=== PATIENT | female | born 1960 | race Caucasian/White ===

== ENCOUNTER 2016-07-22 12:51 | Emergency (ER) | payer MEDICARE, MEDICAID ==
[2016-07-22] MEDS ORDERED: IPRATROPIUM/ALBUTEROL 3 ML VIAL NEB ONE (13:04)
[2016-07-22] MEDS ORDERED: traZODone HCL 100 MG TAB PO ONE (13:04)
[2016-07-22] MEDS ORDERED: BUTORPHANOL TARTRATE 2 MG/ML VIAL IM ONE (13:05)
[2016-07-22] MEDS ORDERED: predniSONE 20 MG TAB PO ONE (13:06)
[2016-07-22 13:16] VITALS: TEMP 98.5
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
[2016-07-22 15:06] VITALS: BP 145/74; O2SAT 98
== END 2016-07-22 14:50 | disposition home or self-care (01) ==
LOC: ER 12:51
DX: J44.1 Chronic obstructive pulmonary disease with (acute) exacerbation (principal); G43.909 Migraine, unspecified, not intractable, without status migrainosus; Z88.0 Allergy status to penicillin; Z79.899 Other long term (current) drug therapy
CPT/HCPCS: 94640; J0595; J7512; J7620

== ENCOUNTER → 2016-07-26 | Outpatient (CLI) | payer MEDICARE, MEDICAID ==
--- NOTE | 2016-07-27 15:16 | RAD ---
EXAM DESCRIPTION: Chest,2 Views CLINICAL HISTORY: 55 years, Female, COPD COMPARISON: February 15, 2010 FINDINGS: Hyperinflation. Some new patchy density left infrahilar zone suspicious for lower lobe pneumonia. Cardiac silhouette normal. Mild apical pleural thickening. IMPRESSION: New opacity left infrahilar zone posteriorly suspicious for lower lobe pneumonia. Follow-up recommended. Normal heart size Electronically signed by: Hugo Locke MD 07/27/2016 3:15 PM CDT
== END | disposition home or self-care (01) ==
LOC: YCFC.O 17:01
PROVIDERS: ATTEND Nurse Practitioner Family
DX: R68.83 Chills (without fever) (principal); J44.1 Chronic obstructive pulmonary disease with (acute) exacerbation

== ENCOUNTER 2017-02-01 16:00 | Emergency (ER) | payer MEDICARE, MEDICAID ==
[2017-02-01 16:14] VITALS: BP 136/95; TEMP 96.8; O2SAT 100
[2017-02-01] MEDS ORDERED: CLINDAMYCIN HCL CAP 150 MG CAP PO ONE (16:29)
--- NOTE | 2017-02-01 16:32 | ED.PDOC ---
History of Present Illness - General Chief Complaint: General Stated Complaint: left jaw swelling Time Seen by Provider: 02/01/17 16:28 Source: patient, RN notes reviewed, Vital Signs reviewed Exam Limitations: no limitations - History of Present Illness Initial Comments: Patient comes to ER with c/o L jaw pain and swelling since yesterday. She thinks it is related to her teeth. No fever or chills. Timing/Duration: 24 hours Severity: moderate Improving Factors: nothing Worsening Factors: eating Associated Symptoms: denies symptoms Allergies/Adverse Reactions: Allergies Penicillins Allergy (Verified 07/22/16 13:08) Home Medications: Ambulatory Orders Albuterol Inhaler [Ventolin Hfa Inhaler] 2 puff INH Q2H PRN #1 inh 07/22/16 Alprazolam [Xanax] 2 mg PO TID 02/01/17 Clindamycin HCl 300 mg PO QID #28 cap 02/01/17 Lurasidone HCl [Latuda] 40 mg PO BEDTIME 02/01/17 Prazosin HCl 1 mg PO BEDTIME 02/01/17 Trazodone HCl 100 mg PO BEDTIME 02/01/17 Venlafaxine HCl [Venlafaxine HCl ER] 300 mg PO DAILY 02/01/17 Review of Systems - Review of Systems Constitutional: States: no symptoms reported EENTM: States: see HPI, mouth pain - L upper jaw, mouth swelling Respiratory: States: no symptoms reported Cardiology: States: no symptoms reported Gastrointestinal/Abdominal: States: no symptoms reported Musculoskeletal: States: no symptoms reported Skin: States: no symptoms reported Neurological: States: no symptoms reported All other Systems: No Change from Baseline Past Medical History (General) - Patient Medical History Hx Stroke: No Hx of COPD: Yes Hx Congestive Heart Failure: No Hx Hypertension: Yes Hx Diabetes: No Surgical History: Hysterectomy - Vaccination History Hx Influenza Vaccination: No Hx Pneumococcal Vaccination: No - Social History Hx Tobacco Use: Yes - Female History Patient is a Female of Child Bearing Age (10 -59 yrs old): No Family Medical History - Family History Mother Family History: Unknown Living Status: Unknown Hx Family Diabetes: Yes Physical Exam - Physical Exam General Appearance: Alert, Comfortable, No apparent distress, Well Developed, Well Groomed, Well Hydrated, Well Nourished Ears, Nose, Throat: hearing grossly normal, other - L upper molars: 2 missing and one broken with jum swelling, tenderness and erythema. Neck: full range of motion, supple, lymphadenopathy (L) Respiratory: no respiratory distress Extremity: normal inspection Neurologic: alert, normal mood/affect, oriented x 3 Skin Exam: normal color, warm/dry Comments: Vital Signs 02/01/17 16:10 Temperature 96.8 F L Pulse Rate [ 84 Left Brachial] Respiratory 20 Rate Blood Pressure 136/95 [Left Arm] O2 Sat by Pulse 100 Oximetry Progress - Progress Progress: 02/01/17 16:33 Clindamycin 300mg PO given Departure - Departure Clinical Impression: Dental abscess, Dental caries Time of Disposition: 16:33 Disposition: Discharge to Home or Self Care Condition: Good Departure Forms: ED Discharge - Pt. Copy, Patient Portal Self Enrollment Instructions: Tooth Abscess, DI for Tooth Decay Diet: resume usual diet Activity: increase activity as tolerated Referrals: Taylor Heller NP [Primary Care Provider] - 1-2 Weeks Prescriptions: Clindamycin HCl 300 mg PO QID #28 cap Home Medications: Ambulatory Orders Albuterol Inhaler [Ventolin Hfa Inhaler] 2 puff INH Q2H PRN #1 inh 07/22/16 Alprazolam [Xanax] 2 mg PO TID 02/01/17 Clindamycin HCl 300 mg PO QID #28 cap 02/01/17 Lurasidone HCl [Latuda] 40 mg PO BEDTIME 02/01/17 Prazosin HCl 1 mg PO BEDTIME 02/01/17 Trazodone HCl 100 mg PO BEDTIME 02/01/17 Venlafaxine HCl [Venlafaxine HCl ER] 300 mg PO DAILY 02/01/17
== END 2017-02-01 16:46 | disposition home or self-care (01) ==
LOC: ER 16:00
DX: K04.7 Periapical abscess without sinus (principal); K02.9 Dental caries, unspecified; J44.9 Chronic obstructive pulmonary disease, unspecified; I10 Essential (primary) hypertension; Z87.891 Personal history of nicotine dependence; Z79.899 Other long term (current) drug therapy; Z88.0 Allergy status to penicillin

== ENCOUNTER 2018-06-27 07:03 | Inpatient (IN) | payer MEDICARE, MEDICAID ==
[2018-06-27] MEDS ORDERED: IPRATROPIUM/ALBUTEROL 3 ML VIAL NEB ONE (07:26)
[2018-06-27] MEDS ORDERED: methylPREDNISolone SODIUM SUC 125 MG/2 ML VIAL IV ONE (07:27)
--- NOTE | 2018-06-27 07:28 | ED.PDOC ---
History of Present Illness - General Chief Complaint: General Stated Complaint: Dizzy, "hurts all over" Time Seen by Provider: 06/27/18 07:16 Source: patient, EMS Exam Limitations: no limitations - History of Present Illness Initial Comments: Lorie Means 57 y/o female with history of COPD brought by EMS with sob,achy all over and fever since last night had also non radiating sharp pains on her chest on deep breathing. Timing/Duration: 24 hours Severity: moderate Improving Factors: nothing Worsening Factors: nothing Associated Symptoms: other - see hpi Allergies/Adverse Reactions: Allergies Penicillins Allergy (Verified 06/27/18 07:54) Home Medications: Ambulatory Orders Albuterol Inhaler [Ventolin Hfa Inhaler] 2 puff INH Q2H PRN #1 inh 07/22/16 Alprazolam [Xanax] 2 mg PO TID 02/01/17 Lurasidone HCl [Latuda] 40 mg PO BEDTIME 02/01/17 Prazosin HCl 1 mg PO BEDTIME 02/01/17 Trazodone HCl [Trazodone Hydrochloride] 100 mg PO BEDTIME 02/01/17 Review of Systems - Review of Systems Constitutional: States: no symptoms reported EENTM: States: no symptoms reported Respiratory: States: see HPI Cardiology: States: see HPI Gastrointestinal/Abdominal: States: no symptoms reported Genitourinary: States: no symptoms reported Musculoskeletal: States: no symptoms reported Skin: States: no symptoms reported All other Systems: Reviewed and Negative, No Change from Baseline Past Medical History (General) - Patient Medical History Hx Stroke: No Hx of COPD: Yes Hx Congestive Heart Failure: No Hx Hypertension: Yes Hx Diabetes: No Surgical History: other - hysterectomy,,knee surgery - Vaccination History Hx Influenza Vaccination: No Hx Pneumococcal Vaccination: No - Social History Hx Tobacco Use: Yes Cigarettes Packs Per Day: 10 Family Medical History - Family History Mother Family History: Unknown Living Status: Unknown Hx Family Diabetes: Yes Physical Exam - Physical Exam General Appearance: Alert, Comfortable, No apparent distress Eye Exam: bilateral normal Ears, Nose, Throat: hearing grossly normal, normal ENT inspection, normal pharynx Neck: non-tender, supple Respiratory: no respiratory distress, no accessory muscle use, decreased breath sounds - bases Cardiovascular/Chest: normal peripheral pulses, regular rate, rhythm, tachycardia Peripheral Pulses: radial,right: 2+, radial,left: 2+ Gastrointestinal/Abdominal: non tender, soft, no organomegaly Back Exam: normal inspection, no CVA tenderness, no vertebral tenderness Extremity: non-tender, no pedal edema, no calf tenderness Neurologic: alert, oriented x 3 Skin Exam: normal color, warm/dry Progress - Progress Progress: 06/27/18 07:45 Vital Signs - 8 hr 06/27/18 07:43 Pulse Rate 88 Respiratory 20 Rate O2 Sat by Pulse 94 L Oximetry - Results/Orders Results/Orders: 06/27/18 07:30 EKG STAT 06/27/18 07:33 URINALYSIS Stat 06/27/18 08:20 BLOOD CULTURE Stat 06/27/18 09:00 Updrafts Daily 06/27/18 Breakfast Regular Diet Laboratory Results - last 24 hr 06/27/18 06/27/18 07:26 07:33 WBC 14.0 H RBC 4.39 Hgb 12.4 Hct 37.0 MCV 84.4 MCH 28.2 MCHC 33.4 RDW 12.9 Plt Count 234 MPV 8.6 Absolute Neuts (auto) 12.40 H Absolute Lymphs (auto) 0.80 L Absolute Monos (auto) 0.90 H Absolute Eos (auto) 0.00 Absolute Basos (auto) 0.10 Neutrophils % 88.2 H Lymphocytes % 5.3 L Monocytes % 6.1 Eosinophils % 0.0 L Basophils % 0.4 PT 9.8 INR 0.98 PTT (SP) 24.7 Sodium 130 L Potassium 3.0 L Chloride 96 L Carbon Dioxide 24 Anion Gap 13.0 BUN 13 Creatinine 0.71 BUN/Creatinine Ratio 18.3 Random Glucose 108 H Serum Osmolality 261.4 L Lactic Acid 2.1 Calcium 8.6 Magnesium 1.5 L Total Bilirubin 1.0 Direct Bilirubin 0.2 Indirect Bilirubin 0.8 AST 27 ALT 19 Alkaline Phosphatase 76 Creatine Kinase 79 CK-MB (CK-2) 1.7 CK-MB (CK-2) % Not Reportable Troponin I < 0.02 Serum Total Protein 7.8 Albumin 3.8 D/W patient regarding findings of PNA on CXR and recommended admit to hospital - EKG/XRAY/CT EKG: Sinus, RBBB - incomplete, no ST T wave changes Comments: HR-83 XRAY: chest - LL PNA Departure - Departure Clinical Impression: Pneumonia Qualifiers: Pneumonia type: due to unspecified organism Laterality: left Lung location: lower lobe of lung Qualified Code(s): J18.1 - Lobar pneumonia, unspecified organism Time of Disposition: 09:14 Disposition: Admit Patient Condition: Fair Departure Forms: Patient Portal Self Enrollment Referrals: Taylor Heller [employer] [Primary Care Provider] - 1-2 Weeks Home Medications: Ambulatory Orders Albuterol Inhaler [Ventolin Hfa Inhaler] 2 puff INH Q2H PRN #1 inh 07/22/16 Alprazolam [Xanax] 2 mg PO TID 02/01/17 Lurasidone HCl [Latuda] 40 mg PO BEDTIME 02/01/17 Prazosin HCl 1 mg PO BEDTIME 02/01/17 Trazodone HCl [Trazodone Hydrochloride] 100 mg PO BEDTIME 02/01/17 Decision To Admit - Decistion To Admit Decision to Admit Reason: Medical Nature Decision to Admit Date: 06/27/18 - D/W Tavia Sharp-TG/Hospitalist Decision to Admit Time: 09:12
--- NOTE | 2018-06-27 07:45 | RAD ---
CHEST 06/27/2018 CLINICAL HISTORY: Shortness of breath COMPARISON: 07/26/2016 TECHNIQUE: AP Chest. FINDINGS: Heart is normal in size. Normal cardiac mediastinal contours and accounting for slight rotation. No pulmonary edema. Left lower lobe opacities consistent with pneumonia. There is no pleural fluid or pneumothorax. Unremarkable soft tissues and bones. IMPRESSION: 1. Left lower lobe pneumonia. Electronically signed by: Nichelle Kam DO 06/27/2018 7:42 AM CDT
[2018-06-27] MEDS ORDERED: levoFLOXacin 500MG IV 500 MG in PREMIX BAG 1 BAG IVPB ONE (08:08)
[2018-06-27] MEDS ORDERED: levoFLOXacin 500MG IV 100 ML IVPB ONE (08:14)
[2018-06-27] MEDS ORDERED: ACETAMINOPHEN 325 MG TAB PO ONE (09:10)
[2018-06-27] MEDS ORDERED: fentaNYL CITRATE INJ 50 MCG/ML AMP IV ONE (09:24)
--- NOTE | 2018-06-27 09:43 | HP ---
SUPERVISING PHYSICIAN: Pancho Dial MD CHIEF COMPLAINT: Weakness, lethargy and shortness of breath. HISTORY OF PRESENT ILLNESS: This is a 57-year-old female patient who has a history of chronic obstructive pulmonary disease. Yesterday, she actually went to work, but about 2 in the afternoon, she became extremely weak and decided to go home. She had shortness of breath and she went home and slept until early this morning. At that point, she could hardly get out of the bed. She continued to have some mild coughing and shortness of breath. She called the ambulance to bring her to the Emergency Room. In the Emergency Room, her WBCs were 14,000 with a left shift on differential. Hemoglobin 12.4, hematocrit 37. Sodium low at 130, potassium low at 3, chloride 96. Glucose slightly high at 106. Magnesium 1.5. Blood cultures were drawn. Chest x-ray shows left lower lobe pneumonia. She was given some Levaquin as well as Solu-Medrol and some breathing treatments. I was called for hospital admission. PAST MEDICAL HISTORY: 1. Hypertension. 2. Chronic obstructive pulmonary disease. 3. Gastroesophageal reflux disease. 4. Anxiety. 5. Bipolar disease. 6. Posttraumatic stress disorder. PAST SURGICAL HISTORY: 1. Knee surgery. 2. Hysterectomy. 3. . ALLERGIES: PENICILLIN. FAMILY HISTORY: Unknown except for diabetes. SOCIAL HISTORY: She smokes about 2 packs of cigarettes weekly. She drinks alcoholic beverages on rare occasions. She denies any illicit drug use. REVIEW OF SYSTEMS: GENERAL: Positive for weakness, fever, fatigue. HEENT: Negative for sinus symptoms, ear pain, vision changes or sore throat. RESPIRATORY: Per history of present illness. CARDIAC: Negative for chest pain, palpitations or tachycardia. GASTROINTESTINAL: Negative for nausea, vomiting, diarrhea or abdominal pain. GENITOURINARY: Negative for hematuria, dysuria or polyuria. MUSCULOSKELETAL: Positive for arthralgias, myalgias. SKIN: Negative for lesions or rashes. NEUROLOGIC: Positive for weakness. Negative for headache or seizures. PHYSICAL EXAMINATION: VITAL SIGNS: Temperature 100.9. Heart rate 89. Blood pressure 125/67. Respiratory rate 18. O2 saturation 94% on 2 liters nasal cannula. GENERAL: This is a 57-year-old female patient who is lying in her hospital bed. She is in no acute distress. HEENT: Normocephalic, atraumatic. Pupils are equal and reactive. Oropharynx is clear. NECK: Supple without mass. RESPIRATORY: Scattered rhonchi throughout with a few expiratory wheezes in the bases. She is slightly tachypneic at times. CHEST: There is equal rise and fall of the chest with inspiration and expiration. CARDIOVASCULAR: Regular rate and rhythm. GASTROINTESTINAL: Abdomen is soft, nondistended, nontender. Bowel sounds are positive. EXTREMITIES: No cyanosis, clubbing or edema. NEUROLOGIC: Awake, alert and oriented times three. Cranial nerves II-XII are grossly intact. SKIN: Warm and dry. LABORATORY: Labs and films are as per history of present illness. IMPRESSION: 1. Sepsis related to left lower lobe pneumonia, most likely community acquired, with admitting temperature of 101.6, respiratory rate 24, WBCs 14,000, heart rate 92. She has a history of chronic obstructive pulmonary disease and she currently smokes. 2. Chronic obstructive pulmonary disease with cute exacerbation, complicated by #1. 3. Electrolyte disturbance, mainly hyponatremia, hypokalemia and hypomagnesemia. 4. Mild dehydration due to #1. 5. History of hypertension. 6. Anxiety. 7. Posttraumatic stress disorder. 8. Bipolar disorder. PLAN: We will admit the patient to the hospital. I will initiate the pneumonia guidelines and continue on Levaquin as ordered in the Emergency Room. She will also get an IV steroid taper and will have good, aggressive pulmonary hygiene including p.r.n. and scheduled breathing treatments. I have restarted her home medications. I started a proton pump inhibitor for ulcer prophylaxis as well as Lovenox for DVT prophylaxis. We will continue to monitor the patient closely and follow as needed. [facility][id number] [facility]
[2018-06-27] MEDS ORDERED: ACETAMINOPHEN 325 MG TAB PO PRN (10:24)
[2018-06-27] MEDS ORDERED: ALBUTEROL SULFATE 2.5 MG/3 ML VIAL NEB PRN (10:24)
[2018-06-27] MEDS ORDERED: SODIUM CHLORIDE 0.9% (FLUSH) 10 ML SYG IV PRN (10:24)
[2018-06-27] MEDS ORDERED: IV SET AND CAP CHANGE INJ INJ SCH (10:30)
[2018-06-27] MEDS ORDERED: POTASSIUM CHLORIDE 20 MEQ TAB PO ONE (10:37)
[2018-06-27] MEDS ORDERED: MAGNESIUM SULFATE PREMIX 2GM 2 GM in PREMIX BAG 1 BAG IVPB ONE (10:37)
[2018-06-27] MEDS ORDERED: KCL 20 MEQ/NS 1,000 ML IVS ONE (10:39)
[2018-06-27] MEDS ORDERED: MAGNESIUM SULFATE PREMIX 2GM 50 ML IVPB ONE (10:50)
[2018-06-27] MEDS: guaiFENesin ER TAB 600 MG TAB PO SCH ×2 (10:57→21:16)
[2018-06-27] MEDS: IPRATROPIUM/ALBUTEROL 3 ML VIAL INH SCH ×3 (13:20→20:09)
[2018-06-27] MEDS ORDERED: methylPREDNISolone SODIUM SUC 40 MG/ML VIAL ONE (14:31)
[2018-06-27] MEDS: methylPREDNISolone SODIUM SUC 125 MG/2 ML VIAL IV SCH ×2 (14:48→21:20)
[2018-06-27] MEDS ORDERED: ALPRAZolam 0.5 MG TAB PO SCH ×2 (15:00→21:00)
[2018-06-27] MEDS ORDERED: PANTOPRAZOLE SODIUM IV 40 MG VIAL ONE (19:08)
[2018-06-27] MEDS: traZODone HCL 100 MG TAB PO SCH (21:16)
[2018-06-27] MEDS: PRAZOSIN HCL 1 MG CAP PO SCH (21:16)
[2018-06-27] MEDS: ENOXAPARIN SODIUM 40 MG/0.4 ML SYG SUBCU SCH (21:17)
[2018-06-27] MEDS: LURASIDONE HCL 40 MG PO SCH (21:17)
[2018-06-27] MEDS: SODIUM CHLORIDE 0.9% (FLUSH) 10 ML SYG IV SCH (21:17)
[2018-06-28] MEDS: methylPREDNISolone SODIUM SUC 125 MG/2 ML VIAL IV SCH (06:08)
[2018-06-28] MEDS: PANTOPRAZOLE SODIUM IV 40 MG VIAL IV SCH (06:08)
[2018-06-28] MEDS: IPRATROPIUM/ALBUTEROL 3 ML VIAL INH SCH ×4 (07:41→21:05)
--- NOTE | 2018-06-28 07:54 | RAD ---
EXAM DESCRIPTION: XR CHEST 2 VIEWS CLINICAL HISTORY: Pneumonia COMPARISON: 06/27/2018 TECHNIQUE: PA/lateral FINDINGS: Normal cardiomediastinal silhouette. Left lower lobe lower lobe infiltrate. Compared to most recent study there is slight improvement in aeration. No focal infiltrate on the right. Lungs are hyperinflated. Left apical pleural thickening IMPRESSION: Mild interval improvement in aeration. Residual left lower lobe interstitial infiltrate Electronically signed by: Herminio Tai MD 06/28/2018 7:51 AM CDT
[2018-06-28] MEDS: guaiFENesin ER TAB 600 MG TAB PO SCH ×2 (10:03→21:03)
[2018-06-28] MEDS: levoFLOXacin 750MG IV 750 MG in PREMIX BAG 1 BAG IVPB SCH (10:03)
[2018-06-28] MEDS: SODIUM CHLORIDE 0.9% (FLUSH) 10 ML SYG IV SCH ×2 (10:03→21:04)
[2018-06-28] MEDS: ALPRAZolam 0.5 MG TAB PO PRN ×2 (10:44→19:23)
--- NOTE | 2018-06-28 12:03 | PN ---
SUPERVISING PHYSICIAN: Pancho Dial MD DATE: 06/28/18 SUBJECTIVE: The patient is sitting up in her bed. It was reported by nursing she has been quite lethargic overnight. We discussed her medications and she does take a quite large amount of Xanax. She does know that we have decreased those and she can ask for them when she needs. Otherwise, she complains of some mild shortness of breath with exertion, but otherwise no chest pain, nausea, vomiting, diarrhea or constipation. OBJECTIVE: VITAL SIGNS: Temperature 98.2. Heart rate 92. Blood pressure 105/67. Respiratory rate 20. O2 saturation 89% on room air, 94% on 2 liters nasal cannula. RESPIRATORY: Diminished breath sounds throughout with a few scattered rhonchi. CARDIAC: Regular rate and rhythm. GASTROINTESTINAL: Abdomen is soft, nondistended, nontender. Bowel sounds are positive. NEUROLOGIC: Awake, alert and oriented times three. LABORATORY: WBCs 18,800, hemoglobin 10.8, hematocrit 32.6. She does have a left shift on differential. Electrolytes are basically within normal limits except that her potassium is slightly low at 3.5. Sputum culture is pending. Preliminary blood cultures show no growth after 48 hours. Chest x-ray shows mild interval improvement in aeration, residual left lower lobe interstitial infiltrate. All other labs and films have been reviewed via the EMR. ASSESSMENT: 1. Sepsis related to left lower lobe pneumonia, most likely community acquired, with admitting temperature of 101.6, respiratory rate 24, WBCs 14,000, heart rate 92. She has a history of chronic obstructive pulmonary disease and she currently smokes. 2. Chronic obstructive pulmonary disease with acute exacerbation, complicated by #1. 3. Electrolyte disturbance on admission, now improved or corrected. We will continue to monitor for supplementation. 4. Mild dehydration due to #1. 5. History of hypertension. 6. Anxiety. 7. Posttraumatic stress disorder. 8. Bipolar disorder. PLAN: We will continue present supportive care including her present antibiotics of Levaquin as well as aggressive pulmonary hygiene. I will titrate down her IV steroids and hopefully she can be transitioned to p.o. steroids in the next day or two. We have discussed smoking cessation. She did refuse a nicotine patch. We will monitor cultures as they become available. We will continue to monitor the patient closely and follow as needed. [id number]
[2018-06-28] MEDS: methylPREDNISolone SODIUM SUC 40 MG/ML VIAL IV SCH ×2 (14:52→21:04)
[2018-06-28] MEDS ORDERED: PANTOPRAZOLE SODIUM IV 40 MG VIAL ONE (19:09)
[2018-06-28] MEDS: PRAZOSIN HCL 1 MG CAP PO SCH (21:03)
[2018-06-28] MEDS: ENOXAPARIN SODIUM 40 MG/0.4 ML SYG SUBCU SCH (21:03)
[2018-06-28] MEDS: traZODone HCL 100 MG TAB PO SCH (21:03)
[2018-06-28] MEDS: LURASIDONE HCL 40 MG PO SCH (21:04)
[2018-06-29] MEDS: methylPREDNISolone SODIUM SUC 40 MG/ML VIAL IV SCH (06:22)
[2018-06-29] MEDS: PANTOPRAZOLE SODIUM IV 40 MG VIAL IV SCH (06:23)
[2018-06-29] MEDS ORDERED: PANTOPRAZOLE SODIUM TAB 40 MG PO SCH (06:30)
[2018-06-29] MEDS: guaiFENesin ER TAB 600 MG TAB PO SCH (08:28)
[2018-06-29] MEDS: levoFLOXacin 750MG IV 750 MG in PREMIX BAG 1 BAG IVPB SCH (08:28)
[2018-06-29] MEDS: SODIUM CHLORIDE 0.9% (FLUSH) 10 ML SYG IV SCH (08:29)
[2018-06-29] MEDS: IPRATROPIUM/ALBUTEROL 3 ML VIAL INH SCH (08:50)
[2018-06-29] MEDS: ALPRAZolam 0.5 MG TAB PO PRN (09:51)
[2018-06-29] MEDS ORDERED: ALPRAZolam 0.25 MG TAB PO ONE (13:08)
[2018-06-29] MEDS ORDERED: VENLAFAXINE XR 75 MG CAP PO SCH (13:30)
[2018-06-29 13:45] VITALS: BP 168/91; TEMP 98.2; O2SAT 100
[2018-06-29] MEDS ORDERED: ATORVASTATIN 10 MG TAB PO SCH (21:00)
--- NOTE | 2018-07-10 09:51 | DS ---
SUPERVISING PHYSICIAN: Pancho Dial MD ADMISSION DIAGNOSIS: 1. Sepsis related to left lower lobe pneumonia, most likely community acquired, with admitting temperature of 101.6, respiratory rate 24, WBCs 14,000, heart rate 92. She has a history of chronic obstructive pulmonary disease and she currently smokes. 2. Chronic obstructive pulmonary disease with acute exacerbation, complicated by #1. 3. Electrolyte disturbance, mainly hyponatremia, hypokalemia and hypomagnesemia. 4. Mild dehydration due to #1. 5. History of hypertension. 6. Anxiety. 7. Posttraumatic stress disorder. 8. Bipolar disorder. DISCHARGE DIAGNOSIS: 1. Sepsis related to left lower lobe pneumonia, most likely community acquired. 2. Chronic obstructive pulmonary disease with exacerbation secondary to #1. 3. Electrolyte disturbance, resolved. 4. Mild dehydration secondary to #1, resolved with fluids. 5. Hypertension. 6. Anxiety. 7. Posttraumatic stress disorder. 8. Bipolar disorder. REASON FOR HOSPITALIZATION: This is a 57-year-old female patient who has a history of chronic obstructive pulmonary disease. Yesterday, she actually went to work, but about 2 in the afternoon, she became extremely weak and decided to go home. She had shortness of breath and she went home and slept until early this morning. At that point, she could hardly get out of the bed. She continued to have some mild coughing and shortness of breath. She called the ambulance to bring her to the Emergency Room. In the Emergency Room, her WBCs were 14,000 with a left shift on differential. Hemoglobin 12.4, hematocrit 37. Sodium low at 130, potassium low at 3, chloride 96. Glucose slightly high at 106. Magnesium 1.5. Blood cultures were drawn. Chest x-ray shows left lower lobe pneumonia. She was given some Levaquin as well as Solu-Medrol and some breathing treatments. I was called for hospital admission. LABORATORY: White count on admission was 14,000. At discharge, 18,800. She did have a left shift. Hemoglobin at discharge was 10.8, hematocrit 32.6, platelet count 210,000. Coagulation studies showed PT 9.8, PTT 24.7. Chemistries on admission showed sodium 130, potassium 3.0, chloride 96, glucose 108, lactic acid 2.1. Magnesium low at 1.5. Liver functions all within normal limits. Troponin less than 0.02. After treatment and prior to discharge, magnesium normalized at 2.2, potassium normal at 3.5, sodium normalized to 140, BUN 20, creatinine 0.77. Urinalysis showed a trace of intact blood. MICROBIOLOGY: Final culture results on blood cultures at 5 days was negative. Sputum culture pending at time of discharge. Influenza A and B by PCR was negative for both A and B. HOSPITAL COURSE: Ms. Means was admitted for exacerbation of chronic obstructive pulmonary disease and started on treatment with antibiotic coverage and steroid taper. She was treated with Levaquin and put on q.i.d. DuoNeb treatments and aggressive pulmonary hygiene. She was a slow taper on her steroids, but was showing good clinical response to treatment on date of discharge. On date of discharge, she was felt clinically stable enough to continue with outpatient management. PLAN: Ms. Means was discharged on 06/29/18 with instructions to followup with Taylor Heller in 7 days or sooner. She was again encouraged to stop smoking. She was told to resume her home medications as instructed and return to the hospital should she have any worsening or concerning symptoms. Diet at discharge was regular diet as tolerated. Activity to increase as tolerated. NEW MEDICATIONS AT DISCHARGE: 1. Levaquin 750 mg daily for 4 days. 2. Medrol Dosepak 4 mg taper dose over 6 days as directed. All other medications prior to hospital were resumed as prior. DISCHARGE ASSESSMENT: VITAL SIGNS: Temperature 98.2. Pulse 103. Blood pressure 151/70. Respiratory rate 16. Saturation 98% on room air. GENERAL: The patient was not in distress. RESPIRATORY: Lung sounds were still diminished, but clear throughout. HEART: Regular rate and rhythm. ABDOMEN: Soft, nontender. Positive bowel sounds. EXTREMITIES: No cyanosis, clubbing or edema. NEUROLOGIC: Alert and oriented times 3. CONDITION AT DISCHARGE: Stable and improving. DISPOSITION: The patient was discharged home. #[id number] MTDD
== END 2018-06-29 14:18 | disposition home or self-care (01) | DRG 871 ==
LOC: ER 07:03 → MS 09:41
PROVIDERS: ADMIT Nurse Practitioner Acute Care; ATTEND Nurse Practitioner Family
DX: A41.9 Sepsis, unspecified organism (principal); J18.9 Pneumonia, unspecified organism; J44.1 Chronic obstructive pulmonary disease with (acute) exacerbation; E87.1 Hypo-osmolality and hyponatremia; J44.0 Chronic obstructive pulmonary disease with (acute) lower respiratory infection; E86.0 Dehydration; I10 Essential (primary) hypertension; F41.9 Anxiety disorder, unspecified; F43.10 Post-traumatic stress disorder, unspecified; F31.9 Bipolar disorder, unspecified; K21.9 Gastro-esophageal reflux disease without esophagitis; E87.6 Hypokalemia; E83.42 Hypomagnesemia; F17.210 Nicotine dependence, cigarettes, uncomplicated; Z88.0 Allergy status to penicillin

== ENCOUNTER 2020-04-22 17:26 | Emergency (ER) | payer MEDICARE, MEDICAID ==
[2020-04-22 17:51] VITALS: O2SAT 99
[2020-04-22] MEDS ORDERED: HYDROcodone 10MG/APAP 325MG 1 EA TAB PO ONE (17:55)
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
--- NOTE | 2020-04-22 18:53 | RAD ---
EXAM: Knee,Left Complete CLINICAL INDICATION: Left knee pain COMPARISON: There is no previous study for comparison. FINDINGS: 4 views of the left knee reveal no evidence of a fracture. There is no knee joint effusion. Mild degenerative changes are noted, manifested by joint space narrowing, subchondral sclerosis and/or subchondral cyst formation, and marginal osteophytes, most severe in the medial compartment. Surgical changes from ACL reconstruction are noted. The osseous structures otherwise appear intact and unremarkable. 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 Electronically signed by: Braulio Ortiz MD 04/22/2020 6:51 PM [facility]
[2020-04-22 19:59] VITALS: BP 172/106; TEMP 98.1
== END 2020-04-22 19:55 | disposition home or self-care (01) ==
LOC: ER 17:26
DX: M25.562 Pain in left knee (principal); M25.762 Osteophyte, left knee; M17.12 Unilateral primary osteoarthritis, left knee; J44.9 Chronic obstructive pulmonary disease, unspecified; E78.5 Hyperlipidemia, unspecified; I10 Essential (primary) hypertension; F32.9 Major depressive disorder, single episode, unspecified; Z98.890 Other specified postprocedural states; Z87.891 Personal history of nicotine dependence; Z79.899 Other long term (current) drug therapy; Z88.0 Allergy status to penicillin; Z87.828 Personal history of other (healed) physical injury and trauma